=== PATIENT | male | born 1960 | race Two or more races ===

== ENCOUNTER → 2022-11-29 | Day surgery (SDC) | payer OTHER, MEDICAID ==
[~2022-11-29] VITALS: Ht 172.7 cm; Wt 100.7 kg
[~2022-11-29] MED LIST: ACETAMINOPHEN 325 MG TAB PO PRN; ACETAMINOPHEN IV 1000 MG/100ML (10MG/ML) IV ONE; ASPI81CH59 PO; ASPirin 81 mg TAB PO SCH; ATOR20TA PO; ATORVASTATIN 20 MG TAB PO SCH; CELECOXIB 100 MG CAP PO ONE; CETI-176 PO; CYCLOBENZAPRINE HCL 10 MG TAB PO SCH; D5W/SOD CHLO 0.9% 1,000 ML IV SCH; DAPA1TAB4 PO; DOCUSATE SOD 100 MG CAP PO SCH; DexAMETHasone SOD PHOS 10MG/1ML VIAL INJ ONE; EMPAGLIFLOZIN 10 MG TAB PO SCH; FAMO-68 PO; FAMOTIDINE 20 MG TAB PO SCH; GABA-1250 PO; GABAPENTIN 300 MG CAP PO SCH; GABAPENTIN 400 MG CAP PO ONE; GLYCOPYRROLATE 0.2 MG/ML 1ML VIAL ONE; HCTZ 25 MG TAB PO SCH; HYDROcodone-ACET 10/325MG TAB PO PRN; KETAMINE HCL 10 ML ONE; LIDOCAINE 1% INJ PF 5ML AMP ONE; LIDOCAINE 2% (LOCAL ANESTH.) PF 5ml SDV ONE; LIDOCAINE 2% JELLY 11ml (GLYDO) ONE; LIDOCAINE 4MG/ML IV SOLN 500 ML IV ONE; LISI-285 PO; LISINOPRIL 20 MG TAB PO SCH; MAGNESIUM SULFATE 1GM/100ML 200 ML IV ONE; MELO7.5T7 PO; METF-489 PO; MORPHINE SULFATE INJ 2 MG/ml SYRG IV PRN; NITROGLYCERIN 0.4 MG SL TAB SL PRN; ONDANSETRON HCL 4 MG/2 ML VIAL IV PRN; ONDANSETRON HCL 4 MG/2 ML VIAL ONE; PHENYLEPHRINE HCL 10 MG/ML VL ONE; PROPOFOL 10 MG/ML 20 ML IV ONE; ROCURONIUM 10MG/ML 10ML VIAL IV ONE; SERT-160 PO; SERTRALINE HCL 50 MG TAB PO SCH; SODIUM CHLORIDE LOCK 10 ML ONE; SUGAMMADEX 200mg/2ml Vial (100MG/ML) IV ONE; TRANEXAMIC ACID 30 ML ONE; ceFAZolin 1GM/50ML 100 ML IV ONE; ceFAZolin 1GM/50ML 50 ML IV SCH; ePHEDrine SULFATE 50 MG/ML AMP ONE; metFORMIN HYDROCHLORIDE 500 MG TAB PO SCH; oxyCODONE ER 20 MG TAB PO ONE
[2022-11-29 09:32] VITALS: O2SAT 99
[2022-11-29 13:05] VITALS: BP 132/73; PULSE 90; RESP 19; TEMP 97.2; O2SAT 94
[2022-11-29 13:20] LABS: Basophils # (auto) 0 10 ^3/uL (0-0.2); Basophils % (auto) 0.3 % (0.0-2.0); Eosinophils # (auto) 0.2 10 ^3/uL (0-0.8); Hematocrit 46.3 % (41.0-53.0); Hemoglobin 15.5 g/dL (13.5-17.5); Mean Corpuscular Hgb Conc. 33.4 g/dL (32.0-36.0); Mean Corpuscular Volume 86.6 fL (80.0-100.0); Monocytes # (auto) 0.2 10 ^3/uL (0-1.3); Neutrophils # (auto) 7.3 10 ^3/uL (1.6-8.6); Neutrophils % (auto) 83.7 % (37.0-80.0); Nucleated Red Blood Cells % 0.1 %; Red Blood Cells 5.34 10^6/uL (4.5-5.90); Red Cell Distribution Width 13.3 % (11.8-14.3); White Blood Cell 8.7 10^3/uL (4.4-10.8)
[2022-11-29 13:44] LABS: Calcium 8.7 mg/dL (8.5-10.1); Potassium 3.7 mmol/L (3.5-5.1)
== END | disposition home or self-care (01) ==
LOC: SUR 06:14 → TELE 07:21 → UNDOADMIN 07:21
PROVIDERS: ATTEND Orthopaedic Surgery
DX: M48.062 Spinal stenosis, lumbar region with neurogenic claudication (principal); I10 Essential (primary) hypertension; E78.5 Hyperlipidemia, unspecified; K21.9 Gastro-esophageal reflux disease without esophagitis; M19.90 Unspecified osteoarthritis, unspecified site; E11.9 Type 2 diabetes mellitus without complications; Z79.82 Long term (current) use of aspirin; Z79.84 Long term (current) use of oral hypoglycemic drugs; Z79.899 Other long term (current) drug therapy; Z98.890 Other specified postprocedural states; M51.16 Intervertebral disc disorders with radiculopathy, lumbar region
CPT/HCPCS: 20931; 20936; 22630; 22632; 22853; 36415; 63052; 80048; 82962; 84484; 85025; 86850; 86900; 86901; 93005; 93306; J0131; J0690; J1100; J2001; J2370; J2405; J2704; J3475